=== PATIENT | female | born 1950 | race Caucasian/White ===

== ENCOUNTER → 2017-02-28 | Outpatient (CLI) | payer MEDICARE, OTHER ==
[~2017-02-28] MED LIST: ABILIFY2 MG PO; ALBUTEROL MININEB NEB; ALBUTEROL17 GM INH; AMITRYPTYLINE PO; ASPIRIN81 M2 PO; AZITHROMYCIN500 MG PO; CARVEDILOL3.125 MG PO; COMBIVENT U/D3 M2 INH; COMBIVENT U/D3 ML INH; K-DUR20 ME1 DOB; LASIX20 MG PO; LIPITOR40 MG PO; LYRICA50 MG PO; LYRICA75 MG PO; OMEPRAZOLE20 M2 PO; OMNICEF300 M1 PO; PAXIL40 MG PO; PERCOCET5/325 PO; PREDNISONE10 MG PO; PREDNISONE5 MG PO; SYMBICORT 160/4.6 G1 INH; TESSALON PERLE100 M1 PO; TUDORZA PRESS400 MCG IH; TUDORZA PRESS400 MCG INH; ZYRTEC10 M2 PO
--- NOTE | ~2017-02-28 | CT57 ---
[facility] A Service of [facility] & [facility] RADIOLOGY TEXT RESULTS PATIENT: LEATHA BASHIR LOCATION: [facility] : 54 UNIT #: [id number] AGE: [address]: Lucho Stephen MD SEX: F ORDER DR: [id number] [facility] [address] [place], [place] [address] [id number] O MR#: [id number] Acc #: [id number] NAME: LEATHA BASHIR : 1950 SEX: F STUDY DATE/TIME: 02/28/2017 13:02 UNIT: [facility] ROOM: STUDY DESCRIPTION: CT Chest Wo Cont Attending Physician: Lucho Stephen M.D. Referring Physician: Lucho Stephen M.D. Ordering Physician: Lucho Stephen M.D. [facility] This report is preliminary unless electronic signature is present EXAM Chest CT, no contrast. DATE OF EXAM 02/28/2017 INDICATIONS 66-year-old female with bilateral pulmonary nodules. History of lung cancer. Follow up. Observation for suspected malignant neoplasm, active malignancy status post radiation therapy in 2012. History of partial lung resection. TECHNIQUE Noncontrast CT chest was performed. This CT exam was performed with one or more of the following radiation dose reduction techniques: automatic exposure control, adjustment of mA and/or kV according to patient size, and iterative reconstruction. COMPARISON 08/16/[address] CHEST: Background changes of emphysema are present. There are postoperative changes in the right lung with associated atelectasis and scarring involving the right middle and right upper lobes. The appearance is unchanged. Noncalcified ground-glass nodularity in both lungs is stable. This includes a subpleural ground-glass nodular opacity in the upper lobe on the left. It measures about 4-5 mm. A 4-5 mm subpleural nodule in the posteromedial left upper lobe also measuring about 5 mm and 4 mm subpleural nodule in the right lower lobe. These are all stable. Documentation of 2 years of stability is recommended. No distinct new pulmonary nodule identified or pleural effusion. STS. [facility] A Service of [facility] & [facility] RADIOLOGY TEXT RESULTS PATIENT: [facility]IR [id number] UNIT #: [id number] AGE: [address]: Lucho Stephen MD SEX: F ORDER DR: Included thyroid unremarkable. No pericardial effusion. Reactive-appearing axillary nodes are present and there are reactive mediastinal nodes. Aorta demonstrates atherosclerotic change. There is no aneurysm. Upper abdomen demonstrates granulomatous change of the spleen. Adrenal glands are unremarkable. Remainder of the visualized upper abdomen demonstrates no acute finding. Incidental nonobstructing sand-like stone in the right kidney. Probable uncomplicated cholelithiasis. Osseous structures demonstrate no suspicious bone lesion. A more distant comparison study dated 11/24/2014, is now available for comparison purposes. When compared to the more distant study, the noncalcified ground-glass nodules in both lungs are unchanged for technical factors given thin slice selection on the current study and thicker slices on the prior comparison exam. This confirms 2 years of stability and benignity. IMPRESSION 1. Postoperative changes in the right lung. No new effusion or new suspicious pulmonary nodule. 2. There is biapical scarring that is stable. Noncalcified ground-glass nodular opacities in both lungs are not significantly changed for technical factors dating back to 2014 and therefore benign based on the 2 years of stability. 3. There is no new adenopathy. 4. Upper abdomen demonstrates no acute finding. Nonobstructing stone in the right kidney and probable uncomplicated cholelithiasis. Dictated by... Baltazar Sy M.D. THIS IS AN ELECTRONICALLY VERIFIED REPORT Baltazar Sy M.D. at 02/28/2017 5:33 PM Mary TD: 02/28/2017 16:29 JOB #: [id number] MEDICAL IMAGING REPORT Page 1 of 1 COPY
== END | disposition home or self-care (01) ==
LOC: CCAT 12:24
DX: R91.8 Other nonspecific abnormal finding of lung field (principal); J98.4 Other disorders of lung; N20.0 Calculus of kidney; Z90.2 Acquired absence of lung [part of]; Z85.118 Personal history of other malignant neoplasm of bronchus and lung
CPT/HCPCS: 71250